=== PATIENT | male | born 1980 | race Caucasian/White ===

== ENCOUNTER 2018-07-05 09:44 | Day surgery (SDC) | payer OTHER ==
[2018-07-04 14:21] VITALS: BMI 25.1
[2018-07-05] VITALS (8 sets, daily range): BP systolic 106–137; BP diastolic 59–76; PULSE 65–88; RESP 15–19; Ht 175.3 cm; Wt 79.8 kg
[~2018-07-05] VITALS: Ht 175.3 cm; Wt 79.8 kg
[~2018-07-05 09:44] MED LIST: CEFAZOLIN 2 GM/50 ML (PMX) 50 ML IVPB SCH; DESFLURANE 15 MIN ONE; LIDOCAINE 2% (SDV) 5 ML INJ ONE; PROPOFOL 200 MG INJ ONE; SUCCINYLCHOLINE CHLORIDE 100 MG/5 ML SYG IV ONE
--- NOTE | 2018-07-05 10:42 | HPN ---
Date/Time of Note Date/Time of Note DATE: 07/05/18 TIME: 10:42 Interval H&P Admission Note Pt. seen H&P reviewed: No system changes MISSY RAMOS Jul 05, 2018 10:42
--- NOTE | 2018-07-05 10:45 | PREAC ---
Date/Time of Note Date/Time of Note DATE: 07/05/18 TIME: 10:44 Anesthesia Eval and Record Evaluation Time Pre-Procedure Interview DATE: 07/05/18 TIME: 10:44 Age 37 Sex male NPO: 8 hrs Preoperative diagnosis genital condyloma Planned procedure laser removal of genital condyloma Past Medical History Past Medical History: None Recreational drugs: Marijuana Surgery & Anesthesia Issues No known issue Meds Anticoagulation: No Beta Rosanna within 24 hr: No Reason Beta Rosanna not given: Pt. not on B-Rosanna No Active Prescriptions or Reported Meds Current Medications Cefazolin Sodium/ Dextrose 50 ml @ 100 mls/hr PRE-OP IVPB ; Start 07/05/18 at 09:00; Stop 07/05/18 at 19:00 Meds reviewed: Yes Allergies Coded Allergies: No Known Allergy (Unverified , 07/05/18) Allergies Reviewed: Yes Labs/Studies Labs Reviewed: Reviewed by anesthesiologist test: N/A Pre-procedure Exam Last vitals Vital Signs Date Temp Pulse Resp B/P (MAP) Pulse Ox O2 O2 Flow FiO2 Time Delivery Rate 07/05/18 98.9 65 16 106/59 100 Room Air 10:28 (75) Airway: Adequate mouth opening, Adequate thyromental dist Mallampati: Mallampati IV Teeth: Normal Lung: Normal Heart: Normal ASA Physical Status ASA physical status: 1 Emergency: None Pre-operative Attestations Prior to commencing anesthesia and surgery, the patient was re-evaluated, there was verification of: *The patient's identity *The results of appropriate recent lab work and preoperative vital signs *The above evaluation not changing prior to induction *Anesthetic plan, risk benefits, alternative and complications discussed with patient/family; questions answered; patient/family understands, accepts and wishes to proceed. MARIBELL LEO DO Jul 05, 2018 10:45
[2018-07-05] MEDS ORDERED: ONDANSETRON 4 MG INJ IV PRN (11:00)
[2018-07-05] MEDS ORDERED: HYDROmorphONE 1 MG/5 ML IV SYRINGE IV PRN ×2 (11:00)
[2018-07-05] MEDS ORDERED: LABETALOL HCL 20MG INJ IV PRN (11:00)
[2018-07-05] MEDS ORDERED: OXYCODONE/ACETAMINOPHEN (5/325) TAB PO PRN ×2 (11:00)
[2018-07-05] MEDS ORDERED: hydrALAzine 20 MG INJ IV PRN (11:00)
[2018-07-05] MEDS ORDERED: ETOMIDATE 20 MG INJ ONE (12:09)
[2018-07-05] MEDS ORDERED: MIDAZOLAM 1 MG/ML 2 ML INJ ONE (12:11)
[2018-07-05] MEDS ORDERED: FENTAnyl 50 MCG/ML VIAL ONE (12:12)
[2018-07-05] MEDS ORDERED: CEFAZOLIN 1 GM INJ ONE (12:24)
[2018-07-05] MEDS ORDERED: ONDANSETRON 4 MG INJ ONE (12:30)
[2018-07-05] MEDS ORDERED: NEOMYC/POLYMYX/BACIT 30 GM OINT ONE (12:33)
--- NOTE | 2018-07-05 13:07 | PAC ---
Date/Time of Note Date/Time of Note DATE: 07/05/18 TIME: 13:06 Post-Anesthesia Notes Post-Anesthesia Note Last documented vital signs Vital Signs Date Temp Pulse Resp B/P (MAP) Pulse Ox O2 O2 Flow FiO2 Time Delivery Rate 07/05/18 98.9 65 16 106/59 100 Room Air 10:28 (75) Activity: WNL Respiratory function: WNL Cardiovascular function: WNL Mental status: Baseline Pain reasonably controlled: Yes Hydration appropriate: Yes Nausea/Vomiting absent: Yes MARIBELL LEO DO Jul 05, 2018 13:07
--- NOTE | 2018-07-05 14:25 | PDOCDIS ---
Discharge Instructions DIAGNOSIS Discharge Diagnosis Genital; condylomas CONDITION Ofe Patient Condition: Fptet1v Good HOME CARE INSTRUCTIONS: Ofe Diet Instructions: Ekta Regular ACTIVITY: Ofe Activity Restrictions: Ekta Slowly Increase Activity Ofe Bathing Restrictions: Ekta Shower FOLLOW UP/APPOINTMENTS Follow-up Plan 2 weeks, call for date and time REFERRALS Ofe Referring Provider: MISSY Cabrera EVAN Jul 05, 2018 14:25
--- NOTE | 2018-07-05 14:27 | OPR ---
Date/Time of Note Date/Time of Note DATE: 07/05/18 TIME: 14:26 Operative Report Procedure Date: Jul 05, 2018 Preoperative Diagnosis extensive genital condylomas Postoperative Diagnosis same Operation/Procedure Performed excision and co2 laser ablation of genital condylomas Surgeon rafy Associate [employer] none Anesthesia Type: general Estimated Blood Loss: none Transfusion none Specimen condyloma Grafts/Implants none Tubes/Drains none Complications none Pt Condition Post Procedure: stable Disposition: PACU Indications condyloma Procedure Description dict [id number] MISSY RAMOS Jul 05, 2018 14:27
--- NOTE | 2018-07-05 14:40 | OPR ---
DATE OF OPERATION: PREOPERATIVE DIAGNOSIS: Extensive genital condylomas. POSTOPERATIVE DIAGNOSIS: Extensive genital condylomas. PROCEDURE: Excision of genital condyloma and CO2 laser ablation of genital condyloma. SURGEON: Mazin Jin MD ANESTHESIA: General. COMPLICATIONS: None. DESCRIPTION OF PROCEDURE: The patient was brought into the operating room and placed on the operatin g table in the supine position. He was prepped and draped in the usual fashion after anesthesia was induced. A timeout was undertaken. Appropriate pressure points were padded. He received preoperati ve antibiotic therapy and sequential compression devices were applied. Attempted LMA was undertaken, but this was not able to be performed, and thus he was converted to general anesthesia. Utilizing C O2 laser precautions, he was prepped and draped in usual fashion. The genitalia was noted for extens malorie genital condylomas ranging in size from 2 mm to 7 x 40 mm extending from the infrapubic region on to the shaft of the penis. Excision of one of the genital condylomas was undertaken on the mid shaft of the penis and sent to pathology. The remaining lesions were then removed with a CO2 laser with e nergy setting of 6 hudson. The extensive genital condylomas were removed. Repeat evaluation did not demonstrate any further lesions. The glans penis meatus and underlying urethra were well preserved. No lesions were noted on the scrotum. Bacitracin ointment was applied and a loosely applied dressin g. He was transferred to recovery room in stable condition and will be discharged home on Bee 5 one tab p.o. q.6h. p.r.n. He may remove the dressing in the morning time. He will follow up in the office in 2 weeks' time. F urther intervention evaluation pending clinical course and results of above. Dictated By: MAZIN DODSON/NTS Conf#: [id number] DID#: [id number]
== END 2018-07-05 14:59 | disposition home or self-care (01) ==
LOC: SDS 09:44
PROVIDERS: ATTEND Urology
DX: A63.0 Anogenital (venereal) warts (principal); F12.90 Cannabis use, unspecified, uncomplicated
CPT/HCPCS: 54065; 88305; J0690; J1170; J2250; J2405; J3010

== ENCOUNTER 2018-09-28 09:21 | Day surgery (SDC) | payer OTHER ==
[~2018-09-28] VITALS: Ht 177.8 cm; Wt 79.4 kg
[2018-09-28] VITALS (13 sets, daily range): BP systolic 117–137; BP diastolic 57–73; PULSE 65–86; RESP 16–19; Ht 177.8 cm; Wt 79.4 kg
--- NOTE | 2018-09-28 07:45 | SIPON ---
Date/Time of Note Date/Time of Note DATE: 09/28/18 TIME: 07:44 Operative Report Preoperative Diagnosis dns Postoperative Diagnosis dns Operation/Procedure Performed stm,ornfx Surgeon see signature line interior design assistant na Anesthesia: general Estimated blood loss: 10 - 50 ml's Transfusion Required none Specimen septal bone Grafts/Implants none Complications none STEFFANIE BAÑUELOS MD Sep 28, 2018 07:45
--- NOTE | 2018-09-28 08:57 | PREAC ---
Date/Time of Note Date/Time of Note DATE: 09/28/18 TIME: 08:56 Anesthesia Eval and Record Evaluation Time Pre-Procedure Interview DATE: 09/28/18 TIME: 08:56 Age 38 Sex male NPO: 8 hrs Preoperative diagnosis Septal Deviation, Turbinate hypertrophy Planned procedure Septoplasty and Turbinate reduction Past Medical History Past Medical History: None Surgery & Anesthesia Issues No known issue Meds Anticoagulation: No Beta Rosanna within 24 hr: No Reason Beta Rosanna not given: Pt. not on B-Rosanna No Active Prescriptions or Reported Meds Meds reviewed: Yes Allergies Coded Allergies: No Known Allergy (Unverified , 07/05/18) Allergies Reviewed: Yes Labs/Studies Labs Reviewed: Reviewed by anesthesiologist test: N/A Studies: ECG (n/a), CXR (n/a) Pre-procedure Exam Airway: Adequate mouth opening, Adequate thyromental dist Mallampati: Mallampati II Teeth: Normal Lung: Normal Heart: Normal ASA Physical Status ASA physical status: 2 Emergency: None Planned Anesthetic General/MAC: ETT Planned Pain Management Parenteral pain med Pre-operative Attestations Prior to commencing anesthesia and surgery, the patient was re-evaluated, there was verification of: *The patient's identity *The results of appropriate recent lab work and preoperative vital signs *The above evaluation not changing prior to induction *Anesthetic plan, risk benefits, alternative and complications discussed with patient/family; questions answered; patient/family understands, accepts and wishes to proceed. KEIRY OROZCO MD Sep 28, 2018 08:57
[~2018-09-28 09:21] MED LIST changes: +CEFAZOLIN 1 GM INJ ONE; -CEFAZOLIN 2 GM/50 ML (PMX) 50 ML IVPB SCH; -DESFLURANE 15 MIN ONE; +DEXAMETHASONE 4 MG/ML 5 ML INJ ONE; +DIPHENHYDRAMINE 50 MG INJ IV PRN; +EPHEDrine 25 MG/5 ML SYG IV PRN; +FENTAnyl 50 MCG/ML VIAL IV PRN; +FENTAnyl 50 MCG/ML VIAL ONE; +HYDROmorphONE 1 MG/5 ML IV SYRINGE IV PRN; +LABETALOL HCL 20MG INJ IV PRN; -LIDOCAINE 2% (SDV) 5 ML INJ ONE; +MEPERIDINE 25 MG INJ IV PRN; +METOCLOPRAMIDE 10 MG INJ IV PRN; +METOCLOPRAMIDE 10 MG INJ ONE; +MIDAZOLAM 1 MG/ML 2 ML INJ ONE; +ONDANSETRON 4 MG INJ IV PRN; +ONDANSETRON 4 MG INJ ONE; +OXYCODONE/ACETAMINOPHEN (5/325) TAB PO PRN; +PROPOFOL 20 ML ONE; -PROPOFOL 200 MG INJ ONE; +ROCURONIUM 50 MG INJ ONE; +SEVOFLURANE 15 MIN ONE; -SUCCINYLCHOLINE CHLORIDE 100 MG/5 ML SYG IV ONE; +hydrALAzine 20 MG INJ IV PRN
--- NOTE | 2018-09-28 09:23 | PAC ---
Date/Time of Note Date/Time of Note DATE: 09/28/18 TIME: 09:22 Post-Anesthesia Notes Post-Anesthesia Note Last documented vital signs T: 98.6 Activity: WNL Respiratory function: WNL Cardiovascular function: WNL Mental status: Baseline Pain reasonably controlled: Yes Hydration appropriate: Yes Nausea/Vomiting absent: Yes KEIRY OROZCO MD Sep 28, 2018 09:22
[2018-09-28] MEDS ORDERED: OXYMETAZOLINE 0.05% 15 ML NAS SPRAY NASAL ONE (09:45)
[2018-09-28] MEDS ORDERED: LIDOCAINE 1%/EPI 30 ML INJ ONE (09:45)
[2018-09-28] MEDS ORDERED: LACTATED RINGER'S 1,000 ML IV SCH (10:00)
--- NOTE | 2018-09-28 10:34 | HPN ---
Date/Time of Note Date/Time of Note DATE: 09/28/18 TIME: 10:34 Interval H&P Admission Note Pt. seen H&P reviewed: No system changes STEFFANIE BAÑUELOS MD Sep 28, 2018 10:34
[2018-09-28] MEDS ORDERED: FENTAnyl 50 MCG/ML VIAL ONE (10:36)
[2018-09-28] MEDS ORDERED: NEOSTIGMINE 3 MG/3 ML SYRINGE ONE (12:18)
[2018-09-28] MEDS ORDERED: GLYCOPYRROLATE 0.4 MG INJ ONE (12:18)
[2018-09-28] MEDS ORDERED: KETOROLAC 30 MG INJ ONE (12:19)
--- NOTE | 2018-09-28 12:37 | PAC ---
Date/Time of Note Date/Time of Note DATE: 09/28/18 TIME: 12:37 Post-Anesthesia Notes Post-Anesthesia Note Last documented vital signs Vital Signs Date Temp Pulse Resp B/P (MAP) Pulse Ox O2 O2 Flow FiO2 Time Delivery Rate 09/28/18 98.5 77 16 117/64 98 face mask 8 L 12:35 (81) Activity: WNL Respiratory function: WNL Cardiovascular function: WNL Mental status: Baseline Pain reasonably controlled: Yes Hydration appropriate: Yes Nausea/Vomiting absent: Yes KEIRY OROZCO MD Sep 28, 2018 12:37
[2018-09-28] MEDS: FENTAnyl 50 MCG/ML VIAL IV PRN ×2 (13:08→13:19)
--- NOTE | 2018-09-28 16:48 | OPR ---
DATE OF OPERATION: 09/28/2018 PREOPERATIVE DIAGNOSES: 1. Deviated septum. 2. Turbinate hypertrophy. 3. Nasal fracture. POSTOPERATIVE DIAGNOSES: 1. Deviated septum. 2. Turbinate hypertrophy. 3. Nasal fracture. PROCEDURES: Septoplasty, bilateral inferior turbinate modification and reduction of nasal fracture. SURGEON: Steffanie Vela MD ANESTHESIA: General. COMPLICATIONS: None. ESTIMATED BLOOD LOSS: 50 mL. DESCRIPTION OF PROCEDURE: After informed consent was obtained, the patient was placed in supine posi tion. General anesthesia was induced. He was injected with 1% lidocaine with 1:100,000 epinephrine and packed with Afrin soaked nasal gauze. After sufficient period of time had elapsed, the patient w as prepped and draped in standard fashion. After sufficient period of time, a left-sided hemitransfi xion incision was made. Bilateral mucoperichondrial flaps were elevated. There were rents noted on both sides but they were not opposing. It appeared that he has had previous septoplasty and multiple nasal fractures with the flaps being scarred into a fracture as well as having portions of his carti mohit and bone removed. At this point, I was able to make perpendicular plate in the ethmoid using a Martinez scissor. Posterior bony deflection was removed using a Cortes. Inferiorly, the maxillary cr est deviation was removed using an osteotome. The comminuted anterior cartilage had an inferior port ion shaved. This led the septum swung back into the midline which was then fixated to the spine usin g a [id number] Vicryl suture. The remainder of cartilage that was deviated was removed, m orselized and replaced. The hemitransfixion incision was then closed using multiple chromic sutures. Whipstitch composed of plain gut was used to oppose septal flaps. At this point, it was felt to be quite midline and no perforations were seen. A left-sided intercartilaginous incision was made. A rhinoplasty flap was created. An open roof deformity was created using a rasp. Medial and lateral o steotomies were then created. The nasal bones were then brought back into the midline. There was a slight defect in the dorsum at the middle third. I had not removed any cartilage, but this was due t o the manipulation of the septum. I then took a portion of cartilage that had been removed from the septoplasty and placed it in the middle third region giving him a straight nasal dorsum laterally. A t this point, the nasal bones were also midline as well from the anterior view. All incisions were t hen closed using multiple chromic sutures. The inferior turbinates were submucosally reduced, infrac tured and outfractured using a Ortega. Telfa packs were placed bilaterally. A rhinoplastic splint was applied. The patient then awakened and transferred to recovery in stable condition. Dictated By: STEFFANIE GAY/MAURIZIO Conf#: [id number] DID#: [id number]
== END 2018-09-28 14:17 | disposition home or self-care (01) ==
LOC: SDS 09:21
PROVIDERS: ATTEND Otolaryngology
DX: J34.2 Deviated nasal septum (principal); J34.3 Hypertrophy of nasal turbinates
CPT/HCPCS: 30140; 30520; 88300; J1100; J1885; J2250; J2405; J2710; J2765; J3010; J0690